=== PATIENT | male | born 1975 | race Caucasian/White ===

== ENCOUNTER 2021-09-08 14:57 | Emergency (ER) | payer SELFPAY ==
[2021-09-08 15:22] VITALS: BP 161/92; PULSE 118; RESP 16; TEMP 36.6; O2SAT 100; BMI 32.1
[2021-09-08 17:25] VITALS: BP 150/80; PULSE 100; RESP 16; TEMP 36.6; O2SAT 100
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
[2021-09-08] MEDS: HYDROcodone-acetaminophen 7.5-325 mg Tablet 1 TAB PO (18:46)
[2021-09-08 19:09] VITALS: BP 148/72; PULSE 100; RESP 16; TEMP 36.6; O2SAT 100
== END 2021-09-08 19:13 | disposition home or self-care (01) ==
PROVIDERS: Emergency Provider Nurse Practitioner Family
DX: M54.50 Low back pain, unspecified (principal)
CPT/HCPCS: 99283; J1885